=== PATIENT | female | born 1970 | race Caucasian/White ===

== ENCOUNTER → 2022-08-10 | Outpatient (CLI) | payer OTHER ==
[2022-08-10 16:30] LABS: BASO # 0.1 10*3/uL (0.0-0.1); BASO % 0.8 % (0.0-1.0); EOS # 0.1 10*3/uL (0.0-0.4); EOS % 1.8 % (1.0-4.0); HEMATOCRIT 36.8 % (37.0-47.0); LYMPH # 2.3 10*3/uL (1.3-4.4); LYMPH % 37.7 % (27.0-41.0); MEAN CELL VOLUME 87.4 fl (81.0-99.0); MEAN CORPUSCULAR HGB 29.5 pg (27.0-31.0); MEAN CORPUSCULAR HGB CONC 33.7 g/dl (33.0-37.0); MONO # 0.5 10*3/uL (0.1-1.0); MONO % 8.8 % (3.0-9.0); NEUT # 3.1 10*3/uL (2.3-7.9); NEUT % 50.7 % (47.0-73.0); PLATELET COUNT AUTOMATED 278 10*3/uL (130-400); RED BLOOD COUNT 4.21 10*6/uL (4.10-5.10); RED CELL DISTRI WIDTH 12.7 % (0-14.5); WHITE BLOOD COUNT 6.2 10*3/uL (4.8-10.8)
[2022-08-10 16:59] LABS: ALKALINE PHOSPHATASE 64 U/L (45-117); BUN 24 mg/dl (7-24); CHLORIDE 108 mmol/L (98-107); CREATININE 0.89 mg/dL (0.55-1.02); POTASSIUM 4.2 mmol/L (3.5-5.1); SGOT/AST 19 IU/L (3-35); SGPT/ALT 18 U/L (12-78); SODIUM 142 mmol/L (136-145); TOTAL PROTEIN 7.2 gm/dL (6.4-8.2)
[2022-08-10 17:05] LABS: THYROID STIM HORMONE (HS) 0.007 uIU/ml (0.358-4.75)
== END | disposition home or self-care (01) ==
LOC: LAB 16:13
PROVIDERS: ATTEND Student in an Organized Health Care Education/Training Program
DX: R53.83 Other fatigue (principal); K52.9 Noninfective gastroenteritis and colitis, unspecified; R63.4 Abnormal weight loss; E55.9 Vitamin D deficiency, unspecified

== ENCOUNTER → 2022-08-13 | Outpatient (CLI) | payer OTHER | END | disposition home or self-care (01) | LOC: LAB 13:52 | PROVIDERS: ATTEND Student in an Organized Health Care Education/Training Program | DX: K52.9 Noninfective gastroenteritis and colitis, unspecified (principal); R53.83 Other fatigue; R63.4 Abnormal weight loss ==

== ENCOUNTER → 2022-08-20 | Outpatient (CLI) | payer OTHER ==
[2022-08-20 11:30] LABS: FREE T4 1.21 ng/dl (0.76-1.46)
[2022-08-20 11:35] LABS: THYROID STIM HORMONE (HS) 0.02 uIU/ml (0.358-4.75); VITAMIN D, 25-HYDROXY 57.3 ng/mL (30-100)
[2022-08-21 22:06] LABS: THYROGLOBULIN ANTIBODY 1.4 IU/mL (0.0-0.9)
== END | disposition home or self-care (01) ==
LOC: LAB 10:34
PROVIDERS: Student in an Organized Health Care Education/Training Program; ATTEND Internal Medicine
DX: C73 Malignant neoplasm of thyroid gland (principal); E03.9 Hypothyroidism, unspecified; Z79.899 Other long term (current) drug therapy; R63.4 Abnormal weight loss; E55.9 Vitamin D deficiency, unspecified

== ENCOUNTER → 2022-12-10 | Outpatient (CLI) | payer OTHER ==
[2022-12-10 17:29] LABS: FREE T4 1.56 ng/dl (0.89-1.76); THYROID STIM HORMONE (HS) 0.885 uIU/ml (0.550-4.780)
[2022-12-11 21:06] LABS: THYROGLOBULIN ANTIBODY 1.9 IU/mL (0.0-0.9)
== END | disposition home or self-care (01) ==
LOC: LAB 16:53
PROVIDERS: ATTEND Internal Medicine
DX: C73 Malignant neoplasm of thyroid gland (principal); E03.9 Hypothyroidism, unspecified; E55.9 Vitamin D deficiency, unspecified; R25.2 Cramp and spasm

== ENCOUNTER → 2023-11-28 | Outpatient (CLI) | payer OTHER | END | disposition home or self-care (01) | LOC: RAD 16:37 | PROVIDERS: ATTEND Student in an Organized Health Care Education/Training Program | DX: M19.011 Primary osteoarthritis, right shoulder (principal); M75.101 Unspecified rotator cuff tear or rupture of right shoulder, not specified as traumatic ==

== ENCOUNTER → 2024-04-10 | Outpatient (CLI) | payer OTHER ==
[2024-04-10 17:02] LABS: FREE T4 1.71 ng/dl (0.89-1.76)
[2024-04-11 08:10] LABS: THYROID PEROXIDASE (TPO) AB 10 IU/mL (0-34)
== END ==
LOC: LAB 16:16
PROVIDERS: ATTEND Internal Medicine
DX: E55.9 Vitamin D deficiency, unspecified (principal); E03.9 Hypothyroidism, unspecified; R25.2 Cramp and spasm

== ENCOUNTER → 2025-04-06 | Outpatient (CLI) | payer OTHER ==
[2025-04-06 14:41] LABS: FREE T4 2.35 ng/dl (0.89-1.76)
== END | disposition home or self-care (01) ==
LOC: LAB 12:52
PROVIDERS: ATTEND Family Medicine
DX: M54.6 Pain in thoracic spine (principal); E03.9 Hypothyroidism, unspecified

== ENCOUNTER → 2025-10-26 | Outpatient (CLI) | payer OTHER ==
[2025-10-26 15:37] LABS: BUN 20 mg/dl (9-23); FREE T4 1.51 ng/dl (0.89-1.76); SGPT/ALT 10 U/L (5-49)
== END | disposition home or self-care (01) ==
LOC: LAB 14:35
PROVIDERS: Student in an Organized Health Care Education/Training Program; ATTEND Internal Medicine Endocrinology, Diabetes & Metabolism
DX: C73 Malignant neoplasm of thyroid gland (principal); E03.9 Hypothyroidism, unspecified